=== PATIENT | female | born 1980 | race Caucasian/White ===

== ENCOUNTER 2016-04-19 07:12 | Outpatient (CLI) | payer OTHER ==
[~2016-04-19] VITALS: Ht 162.6 cm; Wt 88.5 kg
[~2016-04-19 07:12] MED LIST: ASAC800T2 PO; CALCTAB28 PO; DELZ400C PO; IMUR50TA PO; IRON65TA PO; MULTCAP PO; MULTLIQ PO; PRED10TA2 PO; PROBCAP4 PO; VITA100037 PO; VITA500T53 PO; [UNRECOGNIZED DRUG - CODE] SL
[2016-04-19] MEDS ORDERED: diphenhydrAMINE 25 MG CAP PO ONE (07:30)
[2016-04-19] MEDS ORDERED: NS 1,000 ML IV SCH (07:30)
[2016-04-19] MEDS ORDERED: ACETAMINOPHEN TAB 650MG DOSE (2X325MG) PO ONE (07:30)
[2016-04-19] MEDS ORDERED: inFLIXimab INJECTION 400 MG in NS 210 ML IV ONE (07:30)
== END 2016-04-19 10:15 | disposition home or self-care (01) ==
LOC: M INFU 07:12
PROVIDERS: ATTEND Internal Medicine
DX: K51.90 Ulcerative colitis, unspecified, without complications (principal)
CPT/HCPCS: 96413; 96415; J1745

== ENCOUNTER → 2016-06-25 | Outpatient (CLI) | payer OTHER | LOC: M LAB 12:32 | PROVIDERS: ATTEND Family Medicine | DX: K51.90 Ulcerative colitis, unspecified, without complications (principal) ==

== ENCOUNTER 2016-09-06 11:09 | Outpatient (CLI) | payer OTHER ==
[~2016-09-06] VITALS: Ht 162.6 cm; Wt 88.0 kg
[~2016-09-06 11:09] MED LIST changes: +diphenhydrAMINE 25 MG CAP PO SCH
[2016-09-06] MEDS ORDERED: ACETAMINOPHEN TAB 650MG DOSE (2X325MG) PO ONE (11:30)
[2016-09-06] MEDS ORDERED: NS 1,000 ML IV SCH (11:30)
[2016-09-06] MEDS ORDERED: inFLIXimab INJECTION 400 MG in NS 210 ML IV ONE (11:30)
[2016-09-06] MEDS ORDERED: INFLIXIMAB IV ONE (11:30)
[2016-09-06] MEDS ORDERED: NS IV ONE (11:30)
== END 2016-09-06 14:25 | disposition home or self-care (01) ==
LOC: M INFU 11:09
PROVIDERS: ATTEND Hospitalist
DX: K51.90 Ulcerative colitis, unspecified, without complications (principal)
CPT/HCPCS: 96413; 96415; J1745

== ENCOUNTER 2017-02-11 12:13 | Outpatient (CLI) | payer OTHER ==
[~2017-02-11] VITALS: Ht 162.6 cm; Wt 88.0 kg
[~2017-02-11 12:13] MED LIST changes: -ASAC800T2 PO; +ASAC800T3 PO; -IMUR50TA PO; +IMUR50TA6 PO; -VITA100037 PO; +VITA100067 PO; +[UNRECOGNIZED DRUG - CODE] SL; -[UNRECOGNIZED DRUG - CODE] SL; -diphenhydrAMINE 25 MG CAP PO SCH
[2017-02-11] MEDS ORDERED: ACETAMINOPHEN TAB 650MG DOSE (2X325MG) PO ONE (12:15)
[2017-02-11] MEDS ORDERED: diphenhydrAMINE 50 MG CAP PO ONE (12:15)
[2017-02-11] MEDS ORDERED: NS 1,000 ML IV SCH (12:15)
[2017-02-11] MEDS ORDERED: INFLIXIMAB BIOSIMILAR 400 MG in NS 210 ML IV ONE (13:00)
== END 2017-02-11 15:00 | disposition home or self-care (01) ==
LOC: M INFU 12:13
PROVIDERS: ATTEND Internal Medicine
DX: K51.90 Ulcerative colitis, unspecified, without complications (principal); Z87.891 Personal history of nicotine dependence; Z79.899 Other long term (current) drug therapy
CPT/HCPCS: 96413; 96415; Q5102

== ENCOUNTER → 2017-04-24 | Outpatient (REF) | payer OTHER ==
[2017-04-24 15:58] LABS: INFLUENZA A AMPLIFICATION POSITIVE (NEGATIVE); INFLUENZA B AMPLIFICATION NEGATIVE (NEGATIVE); RSV AMPLIFICATION NEGATIVE (NEGATIVE)
== END ==
LOC: M LAB REF 15:06
DX: J02.9 Acute pharyngitis, unspecified (principal); J11.1 Influenza due to unidentified influenza virus with other respiratory manifestations

== ENCOUNTER → 2019-08-20 | Outpatient (CLI) | payer OTHER ==
[~2019-08-20] MED LIST changes: -DELZ400C PO; +IMUR50TA10 PO; -IMUR50TA6 PO; +MESA400C PO; +VITA500T17 PO; -VITA500T53 PO
[2019-08-20 13:13] LABS: HEMATOCRIT 41.6 % (36.0-47.0); MEAN CORPUSCULAR HEMOGLOBIN 31.2 pg (27.0-33.0); MEAN CORPUSCULAR HGB CONC 33.7 g/dl (32.0-36.5); MEAN CORPUSCULAR VOLUME 92.7 fl (80.0-96.0); PLATELET COUNT, AUTOMATED 202 10^3/uL (150-450); RED BLOOD COUNT 4.49 10^6/uL (4.00-5.40); WHITE BLOOD COUNT 6.5 10^3/uL (4.0-10.0)
[2019-08-20 13:46] LABS: ALBUMIN 3.8 GM/DL (3.2-5.2); ALT/SGPT 31 U/L (12-78); BILIRUBIN,TOTAL 0.9 MG/DL (0.2-1.0); BLOOD UREA NITROGEN 10 MG/DL (7-18); CARBON DIOXIDE LEVEL 27 MEQ/L (21-32); CHLORIDE LEVEL 108 MEQ/L (98-107); CHOLESTEROL LEVEL 153 MG/DL (<200); CHOLESTEROL RISK RATIO 3.923 (<5); CREATININE FOR GFR 0.94 MG/DL (0.55-1.30); GLOMERULAR FILTRATION RATE > 60.0 (>58); GLUCOSE, FASTING 86 MG/DL (70-100); HDL CHOLESTEROL 39 MG/DL (>40); IRON (FE) 91 UG/DL (50-170); LDL CHOLESTEROL 91 MG/DL (<100); NON-HDL-C 114 MG/DL; PERCENT SATURATION 30.7 % (13.2-45.0); POTASSIUM SERUM 4.3 MEQ/L (3.5-5.1); SODIUM LEVEL 141 MEQ/L (136-145); TOTAL IRON BINDING CAPACITY 296 UG/DL (250-450); TOTAL PROTEIN 6.9 GM/DL (6.4-8.2); TRIGLYCERIDES LEVEL 115 MG/DL (<150)
[2019-08-20 13:47] LABS: TOTAL 25(OH) VITAMIN D 28.9 NG/ML (30.0-100.0)
[2019-08-20 14:07] LABS: VITAMIN B12 LEVEL 228 PG/ML (247-911)
[2019-08-20 14:30] LABS: HEMOGLOBIN A1c 5.3 %
== END ==
LOC: M WUC 10:00
PROVIDERS: ATTEND Family Medicine
DX: D64.9 Anemia, unspecified (principal); R53.83 Other fatigue; E03.9 Hypothyroidism, unspecified

== ENCOUNTER → 2020-01-30 | Outpatient (CLI) | payer OTHER | LOC: M LABSMTC 11:30 | PROVIDERS: ATTEND Family Medicine | DX: Z20.828 Contact with and (suspected) exposure to other viral communicable diseases (principal) ==

== ENCOUNTER → 2021-09-06 | Outpatient (CLI) | payer BC ==
[2021-09-06 13:02] LABS: HEMATOCRIT 41.8 % (36.0-47.0); HEMOGLOBIN 14.4 g/dl (12.0-15.5); MEAN CORPUSCULAR HEMOGLOBIN 32.3 pg (27.0-33.0); MEAN CORPUSCULAR HGB CONC 34.4 g/dl (32.0-36.5); MEAN CORPUSCULAR VOLUME 93.7 fl (80.0-96.0); PLATELET COUNT, AUTOMATED 206 10^3/uL (150-450); RED BLOOD COUNT 4.46 10^6/uL (4.00-5.40); WHITE BLOOD COUNT 8.5 10^3/uL (4.0-10.0)
[2021-09-06 13:33] LABS: ALBUMIN 3.7 GM/DL (3.2-5.2); ALT/SGPT 30 U/L (12-78); BILIRUBIN,TOTAL 1.1 MG/DL (0.2-1.0); BLOOD UREA NITROGEN 10 MG/DL (7-18); CALCIUM LEVEL 9.4 MG/DL (8.5-10.1); CARBON DIOXIDE LEVEL 28 MEQ/L (21-32); CHLORIDE LEVEL 107 MEQ/L (98-107); CHOLESTEROL LEVEL 166 MG/DL (<200); CHOLESTEROL RISK RATIO 3.688 (<5); CREATININE FOR GFR 0.96 MG/DL (0.55-1.30); GLOMERULAR FILTRATION RATE > 60.0 (>58); GLUCOSE, FASTING 87 MG/DL (70-100); HDL CHOLESTEROL 45 MG/DL (>40); LDL CHOLESTEROL 94 MG/DL (<100); NON-HDL-C 121 MG/DL; POTASSIUM SERUM 4.1 MEQ/L (3.5-5.1); SODIUM LEVEL 141 MEQ/L (136-145); TOTAL PROTEIN 6.6 GM/DL (6.4-8.2); TRIGLYCERIDES LEVEL 134 MG/DL (<150)
[2021-09-06 13:41] LABS: TOTAL 25(OH) VITAMIN D 29.2 NG/ML (30.0-100.0)
== END ==
LOC: M LAB 12:24
PROVIDERS: ATTEND Family Medicine
DX: D64.9 Anemia, unspecified (principal)

== ENCOUNTER → 2023-11-15 | Outpatient (CLI) | payer OTHER ==
[2023-11-15 10:07] LABS: HEMATOCRIT 41.3 % (36.0-47.0); HEMOGLOBIN 14.1 g/dl (12.0-15.5); MEAN CORPUSCULAR HEMOGLOBIN 31.5 pg (27.0-33.0); MEAN CORPUSCULAR HGB CONC 34.1 g/dl (32.0-36.5); MEAN CORPUSCULAR VOLUME 92.2 fl (80.0-96.0); PLATELET COUNT, AUTOMATED 205 10^3/uL (150-450); RED BLOOD COUNT 4.48 10^6/uL (4.00-5.40); WHITE BLOOD COUNT 8.1 10^3/uL (4.0-10.0)
[2023-11-15 10:31] LABS: ALBUMIN 3.8 G/DL (3.2-5.2); ALKALINE PHOSPHATASE 100 U/L (46-116); ALT/SGPT 24 U/L (7.0-40); AST/SGOT 20 U/L (<34); BILIRUBIN,TOTAL 1.2 MG/DL (0.3-1.2); BLOOD UREA NITROGEN 10 MG/DL (9-23); CALCIUM LEVEL 9.1 MG/DL (8.5-10.1); CARBON DIOXIDE LEVEL 28 MMOL/L (20-31); CHLORIDE LEVEL 106 MMOL/L (98-107); CHOLESTEROL LEVEL 138 MG/DL (<200); CHOLESTEROL RISK RATIO 3.46 (<5); CREATININE FOR GFR 0.88 MG/DL (0.55-1.30); GLOMERULAR FILTRATION RATE > 60.0 (>58); GLUCOSE, FASTING 89 MG/DL (60-100); HDL CHOLESTEROL 39.8 MG/DL (>40); LDL CHOLESTEROL 73.2 MG/DL (<100); NON-HDL-C 98.2 MG/DL; SODIUM LEVEL 137 MMOL/L (136-145); TOTAL PROTEIN 6.3 G/DL (5.7-8.2); TRIGLYCERIDES LEVEL 125 MG/DL (<150)
[2023-11-15 10:33] LABS: THYROID STIMULATING HORMONE 1.509 uIU/ML (0.55-4.78)
== END ==
LOC: M LAB 09:11
PROVIDERS: ATTEND Family Medicine
DX: I10 Essential (primary) hypertension (principal); R53.83 Other fatigue